=== PATIENT | male | born 1940 | race Hispanic/Latino ===

== ENCOUNTER 2018-04-07 15:53 | Observation (INO) | payer OTHER ==
[~2018-04-07] VITALS: Ht 172.7 cm; Wt 98.5 kg
[2018-04-07] MEDS ORDERED: SODIUM CHLORIDE 0.9% 1000ML 1,000 ML ONE (15:56)
[2018-04-07] MEDS ORDERED: SODIUM CHLORIDE 0.9% 1000ML 2,000 ML IV ONE (16:00)
[2018-04-07 16:04] LABS: BASOPHILS % 0.5 % (0.0-1.0); EOSINOPHILS # (AUTO) 0.4 (0.0-0.4); EOSINOPHILS % 4.1 % (0.0-6.0); HEMATOCRIT 34.4 % (38.2-49.6); HEMOGLOBIN 11.3 g/dL (14.0-18.0); LYMPHOCYTES # (AUTO) 2.2 (1.0-3.2); LYMPHOCYTES % 24.5 % (18.0-39.1); MEAN CORPUSCULAR HEMOGLOBIN 28.3 pg (28-32); MEAN CORPUSCULAR HGB CONC 32.8 g/dL (31-35); MEAN CORPUSCULAR VOLUME 86.2 fL (81-99); MONOCYTES # (AUTO) 0.5 (0.2-0.8); NEUTROPHILS # (AUTO) 5.7 (2.1-6.9); NEUTROPHILS % 64.7 % (38.7-80.0); PLATELET COUNT 224 x10e3/uL (140-360); RED BLOOD COUNT 3.99 x10e6/uL (4.3-5.7); RED CELL DISTRIBUTION WIDTH 13.6 % (11.7-14.4)
[2018-04-07 16:21] LABS: ALBUMIN 3.7 g/dL (3.5-5.0); ALBUMIN/GLOBULIN RATIO 1.1 (0.8-2.0); ANION GAP 16.6 mmol/L (8-16); CALCIUM 9.2 mg/dL (8.4-10.2); CREATININE, SERUM 1.75 mg/dL (0.72-1.25); MAGNESIUM 1.8 MG/DL (1.3-2.1); PHOSPHORUS 3.1 MG/DL (2.3-4.7); POTASSIUM 3.6 mmol/L (3.5-5.1)
[2018-04-07] MEDS ORDERED: ONDANSETRON HCL INJ 2 MG/ML VIAL IV PRN (18:45)
[2018-04-07] MEDS ORDERED: SODIUM CHLORIDE FLUSH 10 ML SYR INJ PRN (18:45)
[2018-04-07] MEDS ORDERED: ASPIRIN 81 MG CHEW TAB PO ONE (18:45)
[2018-04-07 19:09] LABS: CREATINE KINASE MB 10.1 ng/mL (0-5.0)
[2018-04-07] MEDS: SODIUM CHLORIDE 0.9% 1000ML 1,000 ML IV SCH (19:48)
[2018-04-07] MEDS ORDERED: HYDRALAZINE HCL 20 MG/ML VIAL IV PRN (21:15)
[2018-04-07] MEDS ORDERED: DEXTROSE 50% SYRINGE 50 ML IV PRN (21:15)
[2018-04-07] MEDS ORDERED: LISINOPRIL10 MG PO (21:29)
[2018-04-07] MEDS ORDERED: METFORMIN HCL500 MG PO (21:29)
[2018-04-07] MEDS ORDERED: GLIMEPIRIDE2 MG PO (21:29)
[2018-04-07] MEDS ORDERED: METOPROLOL TART50 MG PO (21:29)
--- NOTE | 2018-04-07 21:52 | Diagnostic Imaging Report ---
EXAMINATION: Head CT without contrast. HISTORY:Syncope. COMPARISON:None. TECHNIQUE: Multidetector axial images were obtained from the foramen magnum to the vertex without contrast. The images were reconstructed using brain and bone algorithms. Thin section brain images were reformatted into coronal and sagittal planes. Intravenous contrast: None IMAGE QUALITY: Suboptimal evaluation particularly of skull base and posterior fossa structures due to streak artifacts. FINDINGS: Skull/scalp: No lytic or blastic. lesions. No surgical changes. Parenchyma: Nonspecific bilateral frontoparietal patchy white matter hypodensity are likely related to small vessel ischemic changes. No acute hemorrhage, mass or acute major vascular territorial infarct. Arteries: Atherosclerotic calcification in bilateral carotid siphon. Dural sinuses: No abnormal density suggestive of thrombosis. Ventricles: Mild compensated dilatation due to volume loss. No hydrocephalus. Extra-axial spaces: No abnormal density. Brain volume: Generalized age-related cerebral volume loss. Craniocervical junction: No mass, Chiari malformation, or basilar invagination. Sella: No mass. Paranasal/mastoid sinuses: Imaged portions unremarkable. IMPRESSION: 1. No acute intracranial abnormality. 2. Mild supratentorial white matter microvascular ischemic changes. 3. Generalized age-related cerebral volume loss. Signed by: Dr. Suzanna Levin M.D. on 04/07/2018 9:48 PM
--- NOTE | 2018-04-07 22:06 | Diagnostic Imaging Report ---
EXAM: CHEST SINGLE (PORTABLE), AP 1 view INDICATION: Syncope, shortness of breath COMPARISON: None FINDINGS: LINES/TUBES: None LUNGS: No consolidations or edema. PLEURA: No effusions or pneumothorax. HEART AND MEDIASTINUM: Normal size and contour. BONES AND SOFT TISSUES: No acute findings. IMPRESSION: No acute thoracic abnormality. Signed by: Dr. Jazlyn Rehman M.D. on 04/07/2018 10:02 PM
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
[2018-04-08] VITALS (9 sets, daily range): BP systolic 148–178; BP diastolic 69–81
[2018-04-08] MEDS: SODIUM CHLORIDE 0.9% 1000ML 1,000 ML IV SCH ×3 (00:20→22:49)
[2018-04-08 00:44] LABS: CREATINE KINASE MB 8.3 ng/mL (0-5.0)
[2018-04-08 04:49] LABS: BASOPHILS % 0.4 % (0.0-1.0); EOSINOPHILS # (AUTO) 0.4 (0.0-0.4); EOSINOPHILS % 5.3 % (0.0-6.0); LYMPHOCYTES # (AUTO) 2.4 (1.0-3.2); LYMPHOCYTES % 31.4 % (18.0-39.1); MEAN CORPUSCULAR HEMOGLOBIN 28.1 pg (28-32); MEAN CORPUSCULAR HGB CONC 32.4 g/dL (31-35); MONOCYTES # (AUTO) 0.6 (0.2-0.8); MONOCYTES % 7.4 % (4.4-11.3); NEUTROPHILS # (AUTO) 4.2 (2.1-6.9); NEUTROPHILS % 55.1 % (38.7-80.0); PLATELET COUNT 187 x10e3/uL (140-360); RED BLOOD COUNT 3.91 x10e6/uL (4.3-5.7); RED CELL DISTRIBUTION WIDTH 13.7 % (11.7-14.4)
[2018-04-08 05:17] LABS: ANION GAP 12.6 mmol/L (8-16); CALCIUM 9.1 mg/dL (8.4-10.2); CREATININE, SERUM 1.29 mg/dL (0.72-1.25); MAGNESIUM 1.8 MG/DL (1.3-2.1); POTASSIUM 3.6 mmol/L (3.5-5.1)
[2018-04-08 06:13] LABS: CHOL/HDL RATIO 3.8 (3.9-4.7)
[2018-04-08 06:35] LABS: THYROID STIMULATING HORMONE 1.305 uIU/mL (0.350-4.940)
[2018-04-08 06:44] LABS: CREATINE KINASE MB 7.2 ng/mL (0-5.0)
--- NOTE | 2018-04-08 06:51 | Diagnostic Imaging Report ---
EXAM: CHEST SINGLE (PORTABLE), AP 1 view INDICATION: Syncope COMPARISON: April 07, 2018 FINDINGS: LINES/TUBES: None LUNGS: No consolidations or edema. PLEURA: No effusions or pneumothorax. HEART AND MEDIASTINUM: Normal size and contour. BONES AND SOFT TISSUES: No acute findings. IMPRESSION: No acute thoracic abnormality. Signed by: Dr. Jazlyn Rehman M.D. on 04/08/2018 6:48 AM
[2018-04-08] MEDS: INSULIN REGULAR, HUMAN 100 UNIT/1 ML 3ML VIAL SQ SCH ×4 (07:30→21:00)
[2018-04-08] MEDS ORDERED: LIDOCAINE 1% W/EPINEPHRINE 20 ML VIAL ONE (08:58)
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
--- NOTE | 2018-04-08 11:39 | Operative Report ---
DATE OF PROCEDURE: April 08, 2018 PROCEDURE PERFORMED: Implantable loop recorder. INDICATIONS: Recurrent syncope. DESCRIPTION OF PROCEDURE: After informed consent, the patient was brought to the cardiac catheterization room and placed on a stretcher. His left chest was painted and draped in a sterile fashion. Lidocaine was injected in the left chest for local anesthesia. An incision was made with the enclosed blade. The subcutaneous tract was performed using the enclosed trocar. The implantable loop recorder was deployed into the subcutaneous tissue with the plunger. The wound was apposed using Dermabond solution, and was dressed in a sterile fashion. Patient tolerated procedure without any complications. Job#: [id number] YOSELYN
--- NOTE | 2018-04-08 15:08 | Diagnostic Imaging Report ---
History: Passed out Comparison studies: CT head 04/07/2018 Technique: Sagittal T2; axial DWI, FLAIR, MPGR, T1, Coronal FLAIR. Intravenous contrast: None Findings: Scalp: Normal in signal . No masses . Bone marrow: Normal in signal intensity. Extra-axial: No masses, no fluid collections. Brain sulci: Mildly prominent. Ventricles: Mildly prominent . No hydrocephalus . Parenchyma: Scattered T2/flair hyperintensities of the periventricular and deep white matter. T2/flair hyperintensity at the level of the tessie with associated partial restricted diffusion in the expected location of the corticospinal tracts. No masses, hemorrhage, acute or chronic vascular insults. Suprasellar region: No abnormalities. Craniocervical junction: No abnormalities. Patent foramen magnum. No Chiari one malformation. Vessels: Normal flow-voids in the arteries and sinuses. IMPRESSION: 1. Moderate chronic microvascular ischemic changes of the white matter and diffuse volume loss. 2. Symmetric pontine T2/flair hyperintensities of the bilateral corticospinal tracts with partial restricted diffusion, this could be seen in microvascular ischemic changes or osmotic demyelination, clinical correlation recommended. Signed by: DR Neville Holman M.D. on 04/08/2018 3:05 PM
[2018-04-08] MEDS ORDERED: TYLENOL WITH C1 EACH PO (15:32)
[2018-04-08] MEDS: ACETAMINOPHEN/CODEINE 300MG - 30MG TAB PO PRN ×2 (15:59→22:37)
[2018-04-08] MEDS: MINOCYCLINE HCL 50 MG CAP PO SCH (17:42)
[2018-04-08] MEDS: HYDRALAZINE HCL 25 MG TAB PO PRN (21:03)
[2018-04-09] VITALS (8 sets, daily range): BP systolic 96–195; BP diastolic 52–81
[2018-04-09] MEDS ORDERED: OMEPRAZOLE40 MG PO (00:57)
[2018-04-09] MEDS ORDERED: CLONIDINE HCL0.2 MG PO (01:07)
[2018-04-09] MEDS ORDERED: MAGNESIUM OXID400 MG PO (01:07)
[2018-04-09] MEDS ORDERED: GLIPIZIDE5 MG PO (01:07)
[2018-04-09] MEDS ORDERED: ULTRAM50 MG PO (01:07)
[2018-04-09] MEDS ORDERED: TIZANIDINE HCL4 MG PO (01:07)
[2018-04-09] MEDS ORDERED: FUROSEMIDE40 MG PO (01:07)
[2018-04-09] MEDS ORDERED: TERAZOSIN HCL5 MG PO (01:07)
[2018-04-09] MEDS ORDERED: GABAPENTIN300 MG PO (01:07)
[2018-04-09] MEDS ORDERED: ATORVASTATIN CA10 MG PO (01:07)
[2018-04-09] MEDS ORDERED: AMLODIPINE BESYL5 MG PO (01:09)
[2018-04-09] MEDS ORDERED: NIFEDIPINE CR 30 MG TAB PO ONE (01:45)
[2018-04-09] MEDS: HYDRALAZINE HCL 25 MG TAB PO PRN (05:26)
[2018-04-09] MEDS: INSULIN REGULAR, HUMAN 100 UNIT/1 ML 3ML VIAL SQ SCH ×4 (07:30→20:57)
[2018-04-09] MEDS ORDERED: NIFEDIPINE CR 30 MG TAB PO SCH (09:00)
[2018-04-09] MEDS ORDERED: CLONIDINE HCL 0.2 MG TAB PO SCH ×2 (09:00→17:00)
[2018-04-09] MEDS ORDERED: ATORVASTATIN 10 MG TAB PO SCH (09:00)
[2018-04-09] MEDS ORDERED: TERAZOSIN HCL 5 MG CAP PO SCH (09:00)
[2018-04-09] MEDS ORDERED: AMLODIPINE BESYLATE 5 MG TAB PO SCH (09:00)
[2018-04-09] MEDS: FUROSEMIDE 40 MG TAB PO SCH (09:11)
[2018-04-09] MEDS: METOPROLOL TARTRATE 25 MG TAB PO SCH (09:11)
[2018-04-09] MEDS: GABAPENTIN 300 MG CAP PO SCH ×3 (09:11→20:57)
[2018-04-09] MEDS: PANTOPRAZOLE SOD 40 MG TABEC PO SCH (09:11)
[2018-04-09] MEDS: MINOCYCLINE HCL 50 MG CAP PO SCH ×2 (09:11→17:13)
[2018-04-09] MEDS: SODIUM CHLORIDE 0.9% 1000ML 1,000 ML IV SCH ×2 (10:43→20:57)
[2018-04-09] MEDS ORDERED: ACETAMINOPHEN 325 MG TAB PO PRN (10:45)
--- NOTE | 2018-04-09 14:20 | Consultation ---
DATE OF CONSULTATION: April 09, 2018 NEUROLOGY CONSULT NOTE HISTORY OF PRESENT ILLNESS: Mr. Garcia is 77-year-old ussoj-lsex-plivhpsy man with past medical history significant for hypertension, hyperlipidemia, diabetes mellitus type 2, and two prior asymptomatic strokes without residual deficits admitted to [facility] on April 07, 2018 with syncope. As part of the syncopal evaluation, the patient underwent a MRI of the brain without contrast which revealed moderate chronic small vessel ischemic disease with pontine involvement. The neurology service was consulted due to the abnormal findings on the MRI of the brain. Mr. Garcia endorses blurred vision shortly before fainting on the day of admission. Otherwise, he does not report a visual field cut or other disturbance. He does not report dysarthria, aphasia, facial droop, hemiparesis, or hemihypesthesia. Mr. Garcia does not endorse poor balance. He does report gait impairment which he attributes to chronic, right-sided sciatica. The patient reports dizziness which is further described as a lightheaded sensation upon standing. This sensation often resolves within seconds. Mr. Garcia does not report confusion or headaches. Mr. Garcia experienced a slip and fall without injury approximately 1 month ago. Otherwise, he reports no prior history of head trauma. He does not report prior history of central nervous system infection. As stated above, patient experienced two asymptomatic strokes some time in the past. There are no deficits from either of these strokes. REVIEW OF SYSTEMS: Blurred vision, impairment of balance or gait, syncope, dizziness which is further described as lightheadedness with standing (chronic). PAST MEDICAL HISTORY: Hypertension, hyperlipidemia, diabetes mellitus type 2, prior strokes without residual deficits, multiple syncopal events. PAST SURGICAL HISTORY: Bilateral carpal tunnel release, bilateral inguinal hernia repair, multiple eye surgeries, cervical spine surgery. PAST HOSPITALIZATIONS: Surgeries/procedures as listed, kidney dysfunction as a teen. FAMILY HISTORY: The patient's paternal and maternal grandparents are . Their medical histories are unknown. The patient's father is from a stroke. His mother is from a stroke or myocardial infarction. Mr. Garcia has 13 siblings, all of whom are living. Two sisters and a brother have dementia. All of the siblings have either hypertension or diabetes mellitus or both. Mr. Garcia had 4 children. One daughter is . She was paralyzed as a result of an accident. While unattended, she fell forward and suffocated. A son is from complications of diabetes mellitus. A 2nd son is alive and has hypertension and diabetes mellitus. A 2nd daughter is alive and has diabetes mellitus and bipolar disorder. SOCIAL HISTORY: The patient is . He works at [employer]. He reports a remote history of tobacco use, but quit smoking cigarettes approximately 40 years ago. He does not report current or prior alcohol or recreational drug use. HOME MEDICATIONS: Tylenol No. 3 300 mg by mouth every 6 hours as needed for pain, Norvasc 5 mg by mouth daily, atorvastatin 10 mg by mouth daily, clonidine 0.2 mg by mouth twice daily, furosemide 20 mg by mouth daily, gabapentin 300 mg by mouth three times daily, glimepiride 2 mg by mouth daily, glipizide 10 mg by mouth twice daily, lisinopril 10 mg by mouth daily, magnesium oxide 400 mg by mouth daily, metformin 500 mg by mouth twice daily, metoprolol tartrate 50 mg by mouth twice daily, omeprazole 40 mg by mouth daily, terazosin 5 mg by mouth daily, tizanidine 4 mg by mouth twice daily, tramadol 50 mg by mouth every 8 hours as needed for pain. ALLERGIES: NO KNOWN DRUG ALLERGIES. NO KNOWN FOOD ALLERGIES. NO KNOWN ALLERGIES TO LATEX. NO KNOWN ALLERGIES TO IODINE OR OTHER CONTRAST MATERIALS. PHYSICAL EXAMINATION: VITAL SIGNS: Height 68 inches, weight 217 pounds, BMI 33.0 kg per meter squared. Blood pressure 164/76 mmHg. Pulse 88 beats per minute. Respiratory rate 18 breaths per minute. Oxygen saturation 95% on room air. GENERAL: The patient is awake and alert. Does not appear distressed. Obese. HEENT: Normocephalic and atraumatic. Pupils are surgical. Moist mucous membranes. NECK: Supple. No appreciable thyromegaly. No appreciable carotid bruits. CARDIOVASCULAR: S1 and S2. Regular rate and rhythm. No murmurs, rubs or gallops. RESPIRATORY: Clear to auscultation bilaterally. No wheezes, rhonchi or rales. EXTREMITIES: The skin is warm and dry. No clubbing, cyanosis or edema. The posterior tibial and dorsalis pedis pulses are 1+ and symmetric. SKIN: No rashes or lesions. NEUROLOGIC: Memory/attention: The patient is awake and alert. Oriented to person, place, time, and situation. CRANIAL NERVES: Cranial nerve I: Not tested. Cranial nerves II, III, IV, : Pupils are surgical. Extraocular movements intact. No nystagmus. Cranial nerve V: Sensation to light touch and pinprick is intact in the bilateral V1 through V3 distributions. Strength of the temporalis and masseter muscles is within normal limits. Cranial nerve VII: The face is symmetric, as are all facial movements. Strength is within normal limits. Cranial nerve VIII: Hearing is diminished to finger rub bilaterally. Cranial nerve IX and X: The soft palate elevates equally and symmetrically. Cranial nerve XI: Normal strength of the bilateral sternocleidomastoid and trapezius muscles. Cranial nerve XII: The tongue protrudes midline and moves symmetrically from side to side. STRENGTH: Bulk is normal, and strength is 5/5 in the bilateral deltoids, biceps, triceps, wrist flexors and extensors, finger flexors and extensors, intrinsic hand muscles, hip flexors, knee flexors and extensors, ankle dorsiflexion and plantar flexion, and intrinsic foot muscles. Tone is normal. DTRs: Deep tendon reflexes are 1+ and symmetric at the triceps, biceps and brachioradialis. Deep tendon reflexes are absent and symmetric at the patellas, and Achilles. Plantar responses are flexor bilaterally. SENSATION: Intact to light touch and pinprick in both arms and both legs. CEREBELLAR: Odfbvn-zomv-swipzo and heel-walton movements are intact without dysmetria or other impairment. GAIT: Deferred. SPEECH: Spontaneous speech is normal without appreciable dysarthria or aphasia. Repetition is intact. INVOLUNTARY MOVEMENTS: None. PRONATOR DRIFT: None. LABORATORY DATA: On April 08, 2018, sodium 145, potassium 3.6, chloride 112, carbon dioxide 24, anion gap 12.6. BUN 24, creatinine 1.29. Estimated GFR 54. BUN to creatinine ratio 19. Glucose 49. Calcium 9.1. Phosphorus 3.0, magnesium 1.8. From April 07, 2018 total bilirubin 0.6, AST 20, ALT 15, alkaline phosphatase 121. Total protein 7.0, albumin 3.7, globulin 3.3, albumin to globulin ratio 1.1. Creatinine kinase 259, 207, 181. CK-MB, 10.I 0, 8.30, and 7.20. Troponin I 0.010. Total cholesterol 134. Triglycerides 87, LDL cholesterol 82, HDL cholesterol 35, vitamin B12 407, TSH 1.305. CBC with differential and platelets reveals a white blood cell count 7.57 with a normal differential. The hemoglobin and hematocrit are 11.0 and 34.0, respectively. The platelet count is 187. DIAGNOSTIC STUDIES: On electrocardiogram 04/07/2018: Sinus bradycardia at 57 beats per minute with 1st-degree AV block. A CT of the brain without contrast of 04/07/2018: On my review, there is no evidence of recent large territorial ischemia, hemorrhage, mass, or mass effect. There is mild diffuse cerebral atrophy, appropriate for age. There are changes compatible with mild to moderate chronic small vessel ischemic disease. Chest x-ray 04/07/2018: No acute thoracic abnormality. Chest x-ray 04/08/2018: No acute thoracic abnormality. Echocardiogram 04/08/2018: Ejection fraction 60% to 65%. Concentric left ventricular hypertrophy. Mild aortic insufficiency. Bilateral carotid artery ultrasound with Doppler 04/08/2018: There is atherosclerosis without hemodynamically significant stenosis at the right carotid bulb, bifurcation, internal carotid artery and external carotid artery. There is atherosclerosis with possible hemodynamically significant stenosis at the left carotid bulb, bifurcation, and internal carotid artery. MRI of the brain without contrast 04/08/2018: On my review, there is no evidence of recent large territorial ischemia, hemorrhage, mass, or mass effect. There is diffuse cerebral atrophy appropriate for age. There are scattered nonspecific T2/flair hyperintense foci supratentorially and infratentorially compatible with moderate chronic small vessel ischemic disease. ASSESSMENT AND PLAN: Mr. Garcia is a 77-year-old [id number] man with past medical history significant for hypertension, hyperlipidemia, diabetes mellitus type 2, and two prior strokes without deficits, admitted to [facility] on April 07, 2018 with syncope. At present, the patient's neurological examination is nonfocal. His laboratory data and diagnostic studies have been reviewed and are documented above. The finding on the MRI of the brain of moderate chronic small vessel ischemic disease is not unexpected given the patient's age and medical comorbidities. Chronic small vessel ischemic disease can be caused by aging, hypertension, hyperlipidemia, and diabetes mellitus. At present, Ms. Garcia's hyperlipidemia and diabetes mellitus type 2 are well controlled. However, his blood pressures have been markedly elevated during this hospitalization. His blood pressures need to be brought under better control. Otherwise, he will continue to accumulate the changes seen on the MRI of the brain without contrast. Mr. Garcia was strongly advised to follow up consistently with the treating physicians for monitoring and additions/adjustments to his medication, or medications. There are ano other recommendations from the neurology service at this time. Thank you for this consultation. Time spent: 70 minutes. Job#: [id number] FLORENCIO BETTENCOURT
[2018-04-09] MEDS ORDERED: SODIUM CHLORIDE 0.9% 100 ML 100 ML ONE (19:08)
[2018-04-09] MEDS: ATORVASTATIN 10 MG TAB PO SCH (20:57)
[2018-04-10] VITALS (8 sets, daily range): BP systolic 116–160; BP diastolic 58–71
[2018-04-10 06:11] LABS: BASOPHILS % 0.4 % (0.0-1.0); EOSINOPHILS # (AUTO) 0.4 (0.0-0.4); EOSINOPHILS % 4.5 % (0.0-6.0); HEMATOCRIT 35.5 % (38.2-49.6); HEMOGLOBIN 11.6 g/dL (14.0-18.0); LYMPHOCYTES # (AUTO) 1.8 (1.0-3.2); LYMPHOCYTES % 22.9 % (18.0-39.1); MEAN CORPUSCULAR HEMOGLOBIN 28.2 pg (28-32); MEAN CORPUSCULAR HGB CONC 32.7 g/dL (31-35); MEAN CORPUSCULAR VOLUME 86.2 fL (81-99); MONOCYTES # (AUTO) 0.5 (0.2-0.8); MONOCYTES % 6.8 % (4.4-11.3); NEUTROPHILS # (AUTO) 5.2 (2.1-6.9); PLATELET COUNT 180 x10e3/uL (140-360); RED BLOOD COUNT 4.12 x10e6/uL (4.3-5.7); RED CELL DISTRIBUTION WIDTH 13.8 % (11.7-14.4)
[2018-04-10 06:33] LABS: ANION GAP 12.9 mmol/L (8-16); CALCIUM 9.5 mg/dL (8.4-10.2); CREATININE, SERUM 1.36 mg/dL (0.72-1.25); POTASSIUM 3.9 mmol/L (3.5-5.1)
[2018-04-10] MEDS: INSULIN REGULAR, HUMAN 100 UNIT/1 ML 3ML VIAL SQ SCH ×4 (07:30→20:57)
[2018-04-10] MEDS: AMLODIPINE BESYLATE 5 MG TAB PO SCH (08:38)
[2018-04-10] MEDS: FUROSEMIDE 40 MG TAB PO SCH (08:38)
[2018-04-10] MEDS: GABAPENTIN 300 MG CAP PO SCH ×3 (08:38→20:55)
[2018-04-10] MEDS: MINOCYCLINE HCL 50 MG CAP PO SCH ×2 (08:38→16:12)
[2018-04-10] MEDS: METOPROLOL TARTRATE 25 MG TAB PO SCH (08:38)
[2018-04-10] MEDS: PANTOPRAZOLE SOD 40 MG TABEC PO SCH (08:38)
[2018-04-10] MEDS: SODIUM CHLORIDE 0.9% 1000ML 1,000 ML IV SCH (14:58)
[2018-04-10] MEDS ORDERED: GADOBENATE DIMEGLUMINE 1 ML IV ONE ×2 (18:26→18:31)
[2018-04-10] MEDS ORDERED: SODIUM CHLORIDE 0.9% 50ML 50 ML ONE (18:26)
[2018-04-10] MEDS ORDERED: IOPAMIDOL 370 MG/ML 200 ML INFUS..BTL INJ ONE (18:52)
[2018-04-10] MEDS ORDERED: SODIUM CHLORIDE 0.9% 100 ML 100 ML ONE (18:53)
--- NOTE | 2018-04-10 20:35 | Diagnostic Imaging Report ---
Exam: Cervical MRI without with IV contrast History: Dizziness, syncope Comparison studies: Limited neck CTA of 04/10/2018. Technique: Precontrast axial 2-D [id number] and postcontrast dynamic coronal with 3-D MIP reformats. Contrast: 20 cc MultiHance. Findings: Patient body habitus limits evaluation. Motion artifact also further limits this exam. Common carotid arteries: The origins cannot adequately be evaluated due to artifacts. Otherwise, patent bilaterally. The left ICA is mildly tortuous. Carotid bulbs: Luminal irregularity due to atherosclerosis bilaterally. Less than 20% stenosis at the right carotid bulb. High-grade stenosis (likely greater than 70% stenosis) at the left cervical carotid bulb/left ICA origin. Internal carotid arteries: Patent bilaterally. IMPRESSION: Moderately limited exam due to patient body habitus and motion artifact. 1. Patent carotid and vertebral arteries. 2. High-grade stenosis (likely greater than 70%) at the left cervical carotid bulb/ICA origin. 3. Less than 20% stenosis at the right carotid bulb. Signed by: Dr. Toi Lala M.D. on 04/10/2018 8:31 PM
[2018-04-10] MEDS: ATORVASTATIN 10 MG TAB PO SCH (20:55)
--- NOTE | 2018-04-10 21:03 | Diagnostic Imaging Report ---
History: Dizziness, syncope Comparison studies:None Technique: Axial images were obtained from the thoracic inlet. Coronal and sagittal images reconstructed from the axial data. Intravenous contrast: 100 cc of Omnipaque 300. If present, stenosis is calculated utilizing the NASCET method which calculates the degree of stenosis with reference to the normal lumen of the carotid artery distal to the stenosis. Findings: Exam is limited due to suboptimal IV contrast bolus timing. Findings limitation: Aortic arch antegrade vessels: Moderate scattered calcified plaque in the arch. Nonstenotic calcified plaque at the left subclavian artery origin with at least mild stenosis in the proximal left subclavian ICA due to soft plaque. Nonstenotic calcified plaque at the right brachiocephalic trunk origin. Mild scattered calcified plaque in the proximal right subclavian without gross significant stenosis. Right carotid artery: Cannot adequately evaluate the origin due to streak artifact from venous contamination in the right subclavian vein, otherwise patent. Calcified and soft plaque extend from the bifurcation into the right carotid bulb with less than 20% stenosis at the right carotid bulb. No tandem stenosis distally within the cervical ICA. There may be mild stenosis at the right ECA origin. Left carotid artery: Mildly tortuous proximal left common carotid artery with moderate soft plaque in the middle and distal segments which result in approximately 30% stenosis. Hard and soft plaque at the bifurcation extends into the left carotid bulb/left ICA origin where there is high-grade stenosis (greater than 70%). No tandem stenosis distally within the cervical right ICA. There is approximately 50% stenosis at the left ECA origin. Vertebral arteries: Patent bilaterally. Atherosclerosis at the origins bilaterally (cannot further evaluate due to suboptimal vascular enhancement and attenuation artifact). Included intracranial circulation: Cannot adequately evaluate due to suboptimal IV contrast bolus timing. In spite of this limitation there is scattered calcified atherosclerosis in the cavernous and paraophthalmic segments of the ICAs and mild calcified atherosclerosis without gross significant stenosis in the V4 segment of the left intradural vertebral artery. The bilateral M1 and proximal M2 MCA, A1 and proximal A2 CHEL, basilar artery and proximal posterior cerebral arteries are patent. Cervical spine: There is minimal anterolisthesis of C4 on C5. 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 Multilevel cervical and thoracic disc degeneration with moderately degenerated disc at C5-C6 and at C7-T1 disc osteophyte complexes from C3 to C6 indent the thecal sac and result in at least mild canal stenosis. Multilevel facet arthrosis and uncovertebral arthrosis result in multilevel foraminal stenosis (moderate bilaterally at C3-C4, moderate right at C4-C5, mild on the right at C5-C6, moderate right and mild left at C6-C7 and mild bilaterally at C7-T1). There appear to be laminotomy changes at C3-C4 and at C5-C6. Findings: Multiple dental caries with periapical lucency at the left first mandibular molar. IMPRESSION: Limited exam. 1. Moderate atherosclerosis without adverse chronic plaques as described. 2. Patent carotid and vertebral arteries. 3. High-grade stenosis (greater than 70%) at the left cervical carotid bulb/ICA origin. 4. Less than 20% stenosis at the right cervical carotid bulb. Signed by: Dr. Toi Lala M.D. on 04/10/2018 8:59 PM
[2018-04-11] VITALS: BP 168/77
[2018-04-11] MEDS: SODIUM CHLORIDE 0.9% 1000ML 1,000 ML IV SCH (02:01)
[2018-04-11 04:00] VITALS: BP 160/73
[2018-04-11] MEDS: INSULIN REGULAR, HUMAN 100 UNIT/1 ML 3ML VIAL SQ SCH (07:30)
[2018-04-11 08:03] VITALS: BP 173/83
[2018-04-11] MEDS: FUROSEMIDE 40 MG TAB PO SCH (09:00)
[2018-04-11] MEDS: MINOCYCLINE HCL 50 MG CAP PO SCH (09:00)
[2018-04-11] MEDS: GABAPENTIN 300 MG CAP PO SCH (09:01)
[2018-04-11] MEDS: AMLODIPINE BESYLATE 5 MG TAB PO SCH (09:01)
[2018-04-11] MEDS: PANTOPRAZOLE SOD 40 MG TABEC PO SCH (09:01)
[2018-04-11] MEDS: METOPROLOL TARTRATE 25 MG TAB PO SCH (09:03)
[2018-04-11] MEDS ORDERED: METOPROLOL TART50 MG PO (10:03)
[2018-04-11 11:06] VITALS: BP 173/83
--- NOTE | 2018-04-11 14:22 | Discharge Summary ---
FINAL DISCHARGE DIAGNOSES 1. Syncopal episode, status post loop recorder. 2. Left internal carotid stenosis requiring outpatient followup with vascular surgery, in which an appointment is being made currently with Dr. Jordan as well as Dr. Bermeo, cardiology. 3. Hypotension - resolved, adjustment of medications. 4. Type 2 diabetes. 5. History of supraventricular tachycardia. CONSULTANTS 1. Neurology. 2. Cardiology. VITAL SIGNS: Temperature is 96.3, pulse 79, blood pressure 160/73, pulse ox 97% on room air. LABORATORY DATA: Lab findings show a white count of 7.9, hemoglobin 11.6, hematocrit is 35, platelets of 180. Chemistries, sodium is 141, potassium 3.9, chloride is 107, bicarbonate is 25. His BUN 19, creatinine was 1.36. Hemoglobin A1c is 6.3. Calcium is 9.5, phosphorus was 3, magnesium is 1.8, total bilirubin is 0.6, AST is 20, and ALT 15. Troponins were negative. Albumin was 3.7. TSH was 1.3, vitamin B12 of 407, LDL was 82. MICROBIOLOGY: None. IMAGING STUDIES: CT brain showed no acute findings. Carotid ultrasound showed a left internal carotid greater than 70, increased velocities concerning for stenosis. Chest x-ray, no acute cardiothoracic abnormality. MRI of the brain showed some moderate chronic microvascular ischemic changes of the white matter and diffuse volume loss. Symmetric pontine T2 FLAIR hyperintensities in the bilateral corticospinal tracts with partial restricted diffusion, which could be seen in microvascular ischemic changes as well as demyelination; clinical correlation is recommended. CTA of the neck showed moderate atherosclerotic carotid plaques as described. Patent carotid and vertebral arteries. High-grade stenosis greater than 70% of the left cervical carotid bulb and less than 20% of the right cervical carotid bulb. An MRA of the neck showed patent carotid vertebral arteries. High-grade stenosis greater than 70% of the left cervical carotid bulb and less than 20% stenosis of the right carotid bulb. HOSPITAL COURSE: A 77-year-old male, morbidly obese, with known type 2 diabetes and hypertension and frequent syncopal episodes who comes into the ED with a syncopal episode that occurred in the parking lot here at [facility]. Patient was brought in and further evaluated. Neurology and cardiology were consulted. In relation to neurology, his CT brain was found to be negative. Carotid ultrasound was consistent with a left carotid bulb stenosis, which required a CTA of the neck as well as MRA of the neck, which was consistent with approximately 70% left internal carotid bulb stenosis. MRI of the brain was found to be negative except for some T2 FLAIR hyperintensities in the bilateral corticospinal tracts with partial restricted diffusion requiring neurology consultation. Per neurology, these were all chronic changes and no need for any further workup at this time. Patient will need to continue with statin and aspirin upon discharge and needs close followup with vascular surgery due to the CTA and MRA neck findings. Cardiology was consulted as well. Patient was on cardiac telemetry with no alarms and troponins were negative. Due to the multiple falls, patient was sent to the labor arbitrator hearing office and the loop recorder was replaced by cardiology. Patient did extremely well, worked with PT/OT while here in the hospital with no other complaints. Patient has been cleared by the consultants for discharge home, but needs to follow up closely with vascular surgery which we had requested a referral to see Dr. Jordan as an outpatient. Patient needs to follow up with Dr. Bermeo in 3 days to get the referral as well as to follow up on his loop recorder, in which the patient verbalized thoroughly. I also spoke with the patient's primary care physician, Dr. Easton Luo's office, and they will do a referral to vascular surgery, Dr. Jordan, in the next 1 week. I also spoke with Dr. Jordan's office and they are in the process of making an appointment for Mr. Garcia to be seen here in the next 5 to 7 days as well. Patient was cleared by the consultants for discharge home. Currently, he is asymptomatic, doing well with no other complaints. Patient was also given information, phone number, and address to Dr. Jordan's vascular surgery office to also follow up through in which he verbalized understanding. On the day of discharge, vital signs stable, labs reviewed and stable. Patient was seen and evaluated and examined thoroughly on the day of discharge, no other complaints. Patient verbalized understanding and agreed with plan of care. Follow up accordingly as an outpatient with his primary care physician in 1 week to get a referral to see Dr. Jordan, vascular surgery, in the next 5 to 7 days and also to follow up with Dr. Bermeo, cardiology, in 3 days for loop recorder as well as follow up for his internal carotid stenosis lesions with referral to Dr. Jordan. Patient verbalized and understood plan of care. MEDICATIONS: See med reconciliation form including 1. Lisinopril 10 mg 1 tab p.o. daily. 2. Aspirin 81 mg daily. 3. Lipitor 10 mg daily. 4. Metoprolol tartrate 12.5 mg 1 tab p.o. b.i.d. 5. Norvasc 10 mg daily. DISPOSITION: To home. CONDITION: Stable. DIET: Heart-healthy and diabetic. FOLLOWUP: Patient is to follow up with PCP with referrals to vascular surgery, Dr. Jordan, as well as Dr. Bermeo in the next 5 to 7 days. Patient verbalized understanding. I spoke with the PCP's office as well as Dr. Jordan's office to make that arrangement here in the next 5 to 7 days, in which they verbalized understanding. In the event of any worsening symptoms, patient advised to come back to the ED for further evaluation. Discharge summary took greater than 35 minutes. Job#: [id number] SATISH
== END 2018-04-11 12:28 | disposition home or self-care (01) ==
LOC: ER 15:53 → ERHOLD 19:09 → MED/SURG 23:11 → ERHOLD 23:12 → MED/SURG 23:48
PROVIDERS: ADMIT Internal Medicine; ATTEND Internal Medicine
DX: R55 Syncope and collapse (principal); E86.0 Dehydration; I65.22 Occlusion and stenosis of left carotid artery; N17.9 Acute kidney failure, unspecified; E11.9 Type 2 diabetes mellitus without complications; I10 Essential (primary) hypertension; I47.1 Supraventricular tachycardia; R00.1 Bradycardia, unspecified; E78.5 Hyperlipidemia, unspecified; N28.9 Disorder of kidney and ureter, unspecified; Z86.73 Personal history of transient ischemic attack (TIA), and cerebral infarction without residual deficits; E66.01 Morbid (severe) obesity due to excess calories; Z68.32 Body mass index [BMI] 32.0-32.9, adult
CPT/HCPCS: 33282; 36415 ×5; 70450; 70498; 70549; 70551; 71045 ×2; 80048 ×2; 80053; 80061; 82550 ×2; 82553 ×2; 82607; 82948 ×4; 83036; 83735 ×2; 84100 ×2; 84443; 84484 ×2; 85025 ×3; 93005 ×2; 93306; 93880; 97116 ×3; 97161; 97530 ×2; 99284; C1764; G0378 ×5; G8978; G8979; G8980; J7030 ×5; Q9967; S0164 ×3

== ENCOUNTER 2018-04-21 08:18 | Inpatient (IN) | payer OTHER ==
--- NOTE | 2018-04-19 16:09 | Diagnostic Imaging Report ---
PROCEDURE: Frontal and lateral views of the chest. COMPARISON: Patients [facility], DX, CHEST SINGLE (PORTABLE), 04/08/2018, 6:00. INDICATIONS: PREOP FOR NECK SURGERY FINDINGS: Lines/tubes: None. Lungs: The lungs are well inflated. Linear subsegmental atelectasis in the lingula. Lungs are otherwise clear. There is no evidence of pneumonia or pulmonary edema. Pleura: There is no pleural effusion or pneumothorax. Heart and mediastinum: Cardiac silhouette is unremarkable. Pulmonary vasculature is normal. Atherosclerotic calcification of the aortic arch. Bones: No acute bony abnormality. Degenerative changes in the thoracic spine. IMPRESSION: 1. No acute cardiopulmonary abnormalities. Javed Mendoza M.D. Dictated by: Javed Mendoza M.D. on 04/19/2018 at 16:15 Electronically approved by: Javed Mendoza M.D. on 04/19/2018 at 16:15
[2018-04-19 16:15] LABS: BASOPHILS % 0.4 % (0.0-1.0); EOSINOPHILS # (AUTO) 0.5 (0.0-0.4); EOSINOPHILS % 6.3 % (0.0-6.0); HEMATOCRIT 31.2 % (38.2-49.6); LYMPHOCYTES # (AUTO) 2.2 (1.0-3.2); LYMPHOCYTES % 27.1 % (18.0-39.1); MEAN CORPUSCULAR HEMOGLOBIN 28.2 pg (28-32); MEAN CORPUSCULAR HGB CONC 32.1 g/dL (31-35); MEAN CORPUSCULAR VOLUME 87.9 fL (81-99); MONOCYTES # (AUTO) 0.6 (0.2-0.8); MONOCYTES % 7.7 % (4.4-11.3); NEUTROPHILS # (AUTO) 4.7 (2.1-6.9); PLATELET COUNT 173 x10e3/uL (140-360); RED BLOOD COUNT 3.55 x10e6/uL (4.3-5.7); RED CELL DISTRIBUTION WIDTH 13.6 % (11.7-14.4)
[2018-04-19 16:24] LABS: INR 1.02; PROTHROMBIN TIME 12.6 seconds (11.9-14.5)
[2018-04-19 16:25] LABS: PARTIAL THROMBOPLASTIN TIME 32.8 seconds (23.8-35.5)
[2018-04-19 16:31] LABS: ANION GAP 12.4 mmol/L (8-16); CREATININE, SERUM 2.17 mg/dL (0.72-1.25); POTASSIUM 4.4 mmol/L (3.5-5.1)
[2018-04-21] VITALS (21 sets, daily range): BP systolic 114–153; BP diastolic 47–80
[~2018-04-21] VITALS: Ht 172.7 cm; Wt 108.9 kg
[~2018-04-21 08:18] MED LIST: AMLODIPINE BESYL5 MG PO; ATORVASTATIN CA10 MG PO; CLONIDINE HCL0.2 MG PO; FUROSEMIDE40 MG PO; GABAPENTIN300 MG PO; GLIMEPIRIDE2 MG PO; GLIPIZIDE5 MG PO; LISINOPRIL10 MG PO; MAGNESIUM OXID400 MG PO; METFORMIN HCL500 MG PO; METOPROLOL TART50 MG PO; OMEPRAZOLE40 MG PO; TERAZOSIN HCL5 MG PO; TIZANIDINE HCL4 MG PO; TYLENOL WITH C1 EACH PO; ULTRAM50 MG PO
[2018-04-21] MEDS ORDERED: LIDOCAINE HCL 1% 2 ML AMP ONE (09:23)
[2018-04-21] MEDS ORDERED: THROMBIN FOR SOLN 5,000 UNIT VIAL ONE (09:24)
[2018-04-21] MEDS ORDERED: PROTAMINE SULFATE 10 MG/ML 5 ML VIAL ONE (09:24)
[2018-04-21] MEDS ORDERED: HEPARIN SOD (PORCINE) 1000 UNIT/ML 30ML ONE (09:24)
[2018-04-21] MEDS ORDERED: MUPIROCIN 2% OINT 22 GM TUBE ONE (09:24)
[2018-04-21] MEDS ORDERED: GELATIN SPONGE SZ 100 ONE (09:24)
[2018-04-21] MEDS ORDERED: SODIUM CHLORIDE 0.9% 500ML 500 ML ONE (09:24)
[2018-04-21] MEDS ORDERED: HEPARIN SOD/SOD CHLORIDE 1,000 ML ONE (09:41)
[2018-04-21] MEDS ORDERED: CEFAZOLIN SOD 1 GM VIAL ONE (10:20)
[2018-04-21] MEDS ORDERED: FENTANYL CITRATE/PF 100MCG/2 ML INJ ONE ×2 (13:58→16:47)
[2018-04-21 14:03] LABS: BASOPHILS % 0.5 % (0.0-1.0); EOSINOPHILS # (AUTO) 0.5 (0.0-0.4); HEMATOCRIT 29.8 % (38.2-49.6); HEMOGLOBIN 9.7 g/dL (14.0-18.0); LYMPHOCYTES # (AUTO) 2.2 (1.0-3.2); MEAN CORPUSCULAR HEMOGLOBIN 28.3 pg (28-32); MEAN CORPUSCULAR HGB CONC 32.6 g/dL (31-35); MEAN CORPUSCULAR VOLUME 86.9 fL (81-99); MONOCYTES # (AUTO) 0.5 (0.2-0.8); MONOCYTES % 6.5 % (4.4-11.3); NEUTROPHILS # (AUTO) 4.4 (2.1-6.9); NEUTROPHILS % 57.5 % (38.7-80.0); PLATELET COUNT 161 x10e3/uL (140-360); RED BLOOD COUNT 3.43 x10e6/uL (4.3-5.7); RED CELL DISTRIBUTION WIDTH 13.6 % (11.7-14.4)
[2018-04-21 14:17] LABS: ANION GAP 12.3 mmol/L (8-16); POTASSIUM 4.3 mmol/L (3.5-5.1)
[2018-04-21] MEDS ORDERED: DEXTROSE 50% SYRINGE 50 ML IV PRN (15:30)
[2018-04-21] MEDS ORDERED: LABETALOL HCL 5 MG/ML 20ML VIAL IV PRN (15:30)
[2018-04-21] MEDS ORDERED: ONDANSETRON HCL 4 MG ORAL DISINTEGRATING TAB PO PRN (15:30)
[2018-04-21] MEDS ORDERED: HYDROCODONE/APAP 5MG-325MG TAB PO PRN (15:30)
[2018-04-21] MEDS: GABAPENTIN 300 MG CAP PO SCH ×2 (16:00→20:13)
[2018-04-21] MEDS: PANTOPRAZOLE SOD 40 MG TABEC PO SCH (16:00)
[2018-04-21] MEDS: MAGNESIUM OXIDE 400 MG TAB PO SCH (16:00)
[2018-04-21] MEDS: AMLODIPINE BESYLATE 10 MG TAB PO SCH (16:00)
[2018-04-21] MEDS: TERAZOSIN HCL 5 MG CAP PO SCH (16:00)
[2018-04-21] MEDS: FUROSEMIDE 20 MG TAB PO SCH (16:00)
[2018-04-21] MEDS ORDERED: FUROSEMIDE INJ 10 MG/ML 4 ML VIAL IV ONE (16:15)
[2018-04-21] MEDS: GLIPIZIDE 5 MG TAB PO SCH (16:30)
[2018-04-21] MEDS: SODIUM CHLORIDE 0.9% 1000ML 1,000 ML IV SCH (16:45)
[2018-04-21] MEDS ORDERED: MIDAZOLAM HCL 2 MG/2 ML VIAL ONE (16:47)
--- NOTE | 2018-04-21 16:54 | Diagnostic Imaging Report ---
PROCEDURE: A single AP view of the chest. COMPARISON: Patients [facility], , CHEST 2 VIEWS, 04/19/2018, 15:21. INDICATIONS: LOW SAT FINDINGS: Lines/tubes: None. Lungs: The lungs are slightly hypoinflated. No consolidation. No overt pulmonary edema. Pleura: There is no pleural effusion or pneumothorax. Heart and mediastinum: Cardiac silhouette is mildly prominent, likely secondary to portable AP projection. Central pulmonary venous congestion. Bones: No acute bony abnormality. IMPRESSION: 1. central pulmonary venous congestion. No consolidation or pulmonary edema. Javed Mendoza M.D. Dictated by: Javed Mendoza M.D. on 04/21/2018 at 17:00 Electronically approved by: Javed Mendoza M.D. on 04/21/2018 at 17:00
[2018-04-21] MEDS: METOPROLOL TARTRATE 25 MG TAB PO SCH (17:00)
[2018-04-21] MEDS: TIZANIDINE HCL 4 MG TAB PO SCH (17:00)
[2018-04-21] MEDS: LISINOPRIL 10 MG TAB PO SCH (17:00)
--- NOTE | 2018-04-21 17:06 | Consultation ---
DATE OF CONSULTATION: April 21, 2018 PULMONARY/CRITICAL CARE CONSULTATION CHIEF COMPLAINT: History of leg swelling and recent carotid endarterectomy. HISTORY OF PRESENT ILLNESS: The patient is a 78-year-old man. He has a history of renal insufficiency and hypertension. He also has a history of SVT and syncope. On a recent hospitalization for syncope, he was found to have carotid artery stenosis. He was admitted for carotid endarterectomy. He received some fentanyl in the recovery room and had some subsequent desaturations. He required oxygen and his saturations are now improving. He does not complain of chest pain or fevers. He does note bilateral leg swelling. PAST MEDICAL HISTORY: Diabetes, hypertension, supraventricular tachycardia renal insufficiency. PAST SURGICAL HISTORY: Recent carotid endarterectomy. FAMILY HISTORY: History of hypertension and diabetes. ALLERGIES: NO KNOWN DRUG ALLERGIES. SOCIAL HISTORY: The patient is no a smoker or a drinker. He quit smoking in 1964. REVIEW OF SYSTEMS: The patient is afebrile. The patient has no headache. He is not having any neck pain. He has no throat pain. Cardiac, regular rate and rhythm with normal S1 and S2. There are no murmurs. Does not report any chest pain. He does note some dyspnea. He is not having any abdominal pain. He has no nausea or vomiting. He does report some leg swelling. PHYSICAL EXAMINATION: VITAL SIGNS: The patient is afebrile. The blood pressure is 173/83 and the O2 saturation 97%. The pulse is 79. HEENT: Examination shows no facial swelling or erythema. Nasal mucosa is normal. The oropharynx is normal. LYMPHATIC: Examination shows no submandibular, cervical or supraclavicular adenopathy. CARDIAC: Exam reveals regular rate and rhythm with normal S1 and S2. There are no murmurs or rubs. LUNGS: Auscultation of the lungs reveals decreased breath sounds at the bases. No wheezing. ABDOMEN: Soft and nontender. No rebound or guarding. EXTREMITIES: Examination shows 2+ leg edema bilaterally. LABORATORY DATA: The white blood cell count is 7.65, hemoglobin 9.7, platelet count 161. BUN to creatinine ratio is 45 to 2.17. It was previously 1.36. Electrolytes within normal limits. Blood sugar is 150. Chest radiograph shows no acute disease IMPRESSION 1. Decreased oxygen saturation and dyspnea following recent surgery. 2. Bilateral leg edema. 3. [id number] renal insufficiency. 4. Hypertension. 5. Diabetes. PLAN: 1. The patient will have a repeat chest x-ray. 2. Continue to wean oxygen as tolerated. 3. Lasix x1. 4. Monitor kidney function. 5. Consider venous Duplex studies. Job#: [id number] GH MTDD
[2018-04-21] MEDS: INSULIN REGULAR, HUMAN 100 UNIT/1 ML 3ML VIAL SQ SCH (18:00)
[2018-04-21] MEDS ORDERED: ROCURONIUM BROMIDE 10 MG/ML 5ML VIAL ONE (18:06)
[2018-04-21] MEDS ORDERED: PROPOFOL IV EMULSION 10 MG/ML 20 ML VIAL ONE (18:06)
[2018-04-21] MEDS ORDERED: EPHEDRINE SULFATE INJ 50 MG/10 ML SYR ONE (18:06)
[2018-04-21] MEDS ORDERED: DEXAMETHASONE SOD PHOS INJ 4 MG/ML VIAL ONE (18:06)
[2018-04-21] MEDS ORDERED: SEVOFLURANE INHAL SOLN 250 ML PEN BTL ONE (18:06)
[2018-04-21] MEDS ORDERED: NEOSTIGMINE 5 MG/5ML SYR ONE (18:06)
[2018-04-21] MEDS ORDERED: ACETAMINOPHEN 1000 MG/100 ML IV ONE (18:06)
[2018-04-21] MEDS ORDERED: ONDANSETRON HCL INJ 2 MG/ML VIAL ONE (18:06)
[2018-04-21] MEDS ORDERED: LIDOCAINE HCL 2% LOCAL INJ 5 ML SDV VIAL INJ ONE (18:06)
[2018-04-21] MEDS ORDERED: GLYCOPYRROLATE INJ 1MG/ 5 ML SYR ONE (18:06)
[2018-04-21] MEDS ORDERED: CEFAZOLIN SOD 1 GM VIAL IV NR (20:00)
[2018-04-21] MEDS: MORPHINE SULFATE 2 MG/ML SYR IV PRN (20:13)
[2018-04-21] MEDS: ATORVASTATIN 10 MG TAB PO SCH (20:13)
[2018-04-22] VITALS (38 sets, daily range): BP systolic 119–162; BP diastolic 45–72
[2018-04-22] MEDS: SODIUM CHLORIDE 0.9% 1000ML 1,000 ML IV SCH (02:59)
[2018-04-22 05:20] LABS: BASOPHILS % 0.3 % (0.0-1.0); EOSINOPHILS % 0.3 % (0.0-6.0); HEMATOCRIT 32.2 % (38.2-49.6); HEMOGLOBIN 10.6 g/dL (14.0-18.0); LYMPHOCYTES # (AUTO) 1.3 (1.0-3.2); MEAN CORPUSCULAR HEMOGLOBIN 28.5 pg (28-32); MEAN CORPUSCULAR HGB CONC 32.9 g/dL (31-35); MEAN CORPUSCULAR VOLUME 86.6 fL (81-99); MONOCYTES # (AUTO) 0.6 (0.2-0.8); MONOCYTES % 5.7 % (4.4-11.3); NEUTROPHILS # (AUTO) 8.9 (2.1-6.9); NEUTROPHILS % 81.3 % (38.7-80.0); PLATELET COUNT 175 x10e3/uL (140-360); RED BLOOD COUNT 3.72 x10e6/uL (4.3-5.7); RED CELL DISTRIBUTION WIDTH 13.5 % (11.7-14.4)
[2018-04-22 05:43] LABS: ALBUMIN 3.3 g/dL (3.5-5.0); ANION GAP 14.1 mmol/L (8-16); CALCIUM 8.9 mg/dL (8.4-10.2); CREATININE, SERUM 1.49 mg/dL (0.72-1.25); POTASSIUM 4.1 mmol/L (3.5-5.1)
[2018-04-22] MEDS: INSULIN REGULAR, HUMAN 100 UNIT/1 ML 3ML VIAL SQ SCH ×4 (06:00→18:00)
[2018-04-22 07:03] LABS: LYMPHOCYTES % (MANUAL) 9 % (19-48); MONOCYTES % (MANUAL) 2 % (3.4-9.0); NEUTROPHILS % (MANUAL) 88 % (40-74)
[2018-04-22 07:04] LABS: RBC MORPHOLOGY COMMENT NORMAL
[2018-04-22 07:05] LABS: ANISOCYTOSIS SLIGHT; HYPOCHROMASIA SLIGHT; PLATELET ESTIMATE ADEQUATE; PLATELET MORPHOLOGY COMMENT NORMAL
[2018-04-22] MEDS: FUROSEMIDE 20 MG TAB PO SCH (08:57)
[2018-04-22] MEDS: TERAZOSIN HCL 5 MG CAP PO SCH (08:57)
[2018-04-22] MEDS: PANTOPRAZOLE SOD 40 MG TABEC PO SCH (08:57)
[2018-04-22] MEDS: GLIPIZIDE 5 MG TAB PO SCH ×2 (08:57→16:54)
[2018-04-22] MEDS: AMLODIPINE BESYLATE 10 MG TAB PO SCH (08:58)
[2018-04-22] MEDS: GABAPENTIN 300 MG CAP PO SCH ×3 (08:58→21:34)
[2018-04-22] MEDS: MAGNESIUM OXIDE 400 MG TAB PO SCH (08:58)
[2018-04-22] MEDS: METOPROLOL TARTRATE 25 MG TAB PO SCH ×2 (08:58→16:54)
[2018-04-22] MEDS: LISINOPRIL 10 MG TAB PO SCH (08:58)
[2018-04-22] MEDS: TIZANIDINE HCL 4 MG TAB PO SCH ×2 (08:59→16:54)
[2018-04-22] MEDS: MORPHINE SULFATE 2 MG/ML SYR IV PRN (08:59)
--- NOTE | 2018-04-22 09:20 | Consultation ---
DATE OF CONSULTATION: April 22, 2018 CARDIOLOGY CONSULTATION REASON FOR CONSULTATION: Cardiac management. HPI: This is a pleasant 77-year-old male that underwent a left carotid endarterectomy, and he was sent to the ICU for recovery. He was admitted in March when he was found passed out in a parking lot. Had a carotid Doppler that was showing 70% to 79% stenosis on the left carotid. He also underwent a loop recorder implant by Dr. Bermeo. He denied any chest pain, any palpitation, any dizziness, any shortness of breath, or diaphoresis. PAST MEDICAL HISTORY: Carotid stenosis, syncope, diabetes, hypertension, hyperlipidemia, SVT, arthritis, and obesity. PAST SURGICAL HISTORY: Internal loop recorder implant. FAMILY HISTORY: Positive for diabetes and hypertension. SOCIAL HISTORY: No smoking. No drinking. Lives at home with family. MEDICATIONS: See med list. ALLERGIES: HE IS NOT ALLERGIC TO ANY MEDICATION. REVIEW OF SYSTEMS: Negative except those mentioned above. He is status post left CEA. PHYSICAL EXAMINATION VITAL SIGNS: Temperature 98, heart rate 99, blood pressure 132/64, respirations 16, oxygen saturation 95% on 2 L nasal cannula. GENERAL: He is awake, alert and oriented times 3. HEENT: Mucous membrane moist. NECK: Supple. LUNGS: Bilateral clear to auscultation. CARDIOVASCULAR: S1 and S2 present. ABDOMEN: Soft. NEUROLOGICAL: Intact. EXTREMITIES: Bilateral lower with 1+ edema. LABS: Sodium 142, potassium 4.1, chloride 106, CO2 26, BUN 25, creatinine 1.49, glucose 149. White blood cell 10.9, hemoglobin 10.6, hematocrit 32.2, and platelets 175,000. PT 12.6, PTT 32.8 and INR 1.02. IMPRESSION 1. Left carotid stenosis. 2. Diabetes. 3. Hypertension. 4. Obesity. 5. Renal insufficiency. ASSESSMENT AND PLAN: He had an echocardiogram done last month that showed normal systolic function. EF of 60% to 65%. He is status post left CEA and doing good. Will go ahead and continue his home medications, including the diuretics. He can be out of bed with physical therapy. Further cardiac workup pending clinical cause. Thank you for this consultation. DICTATED BY ODILIA ALAMO NP Job#: [id number] [place]
[2018-04-22] MEDS: ACETAMINOPHEN/CODEINE 300MG - 30MG TAB PO PRN ×2 (13:41→19:32)
--- NOTE | 2018-04-22 13:42 | Operative Report ---
DATE OF PROCEDURE: April 21, 2018 PREOPERATIVE DIAGNOSIS: Severe left carotid stenosis. POSTOPERATIVE DIAGNOSIS: Severe left carotid stenosis. DEPOSIT REFUND CLERK: Christopher Coleman CST OPERATION PERFORMED: Left carotid endarterectomy. DESCRIPTION OF OPERATION: After the satisfactory accomplishment of general anesthesia, the patient's left neck was prepped and draped in sterile fashion. A standard left carotid incision was made along the anterior border of the sternomastoid muscle. The incision was carried down through the subcutaneous tissues to expose the left common carotid artery. The vessel was dissected free from the surrounding tissues and looped with a vessel loop. The dissection was carried distally to expose the internal carotid artery and the external carotid artery and its branches. Care was taken to identify and preserve all nerve structures in the region. Systemic heparin was given through a central vein cannula for the purposes of anticoagulation. The common, external and internal carotid arteries were briefly crossclamped. A long incision was made in the common carotid artery and carried distally through the bifurcation and well up into the internal carotid artery. A severely obstructing atherosclerotic plaque was quickly encountered. The plaque was removed using standard endarterectomy techniques. Following this, an indwelling shunt was placed in the common carotid artery proximally and the internal carotid artery distally, thereby reestablishing blood flow to the left side of the brain for the remainder of the case. The surface of the vessel was then smoothed, and all loose debris was carefully removed. Heparinized saline flushes were routinely employed. A previously constructed Dacron patch was brought into the operative field. The patch was used to close the arteriotomy site. Running 7-0 Prolene was used for this patch closure. Prior to completing the closure, the shunt was removed and the vessel was flushed free from all air and debris. Once the sutures were tied, there was an excellent pulse in the patch and in the carotid artery beyond. Protamine was then given to counteract the effects of the heparin. All bleeding points were cauterized, ligated or oversewn. The wounds were thoroughly irrigated with antibiotic solution and closed in layers with interrupted 2-0 Vicryl for the deep tissues and Monocryl subcuticular stitches for the skin. The patient tolerated the procedure well and was returned to the intensive care unit in good condition. Job#: [id number] EV
[2018-04-22] MEDS ORDERED: FUROSEMIDE INJ 10 MG/ML 4 ML VIAL IV ONE (14:00)
[2018-04-22] MEDS: ENOXAPARIN SOD INJ 40 MG/0.4 ML SYR SC SCH (16:54)
[2018-04-22] MEDS: ATORVASTATIN 10 MG TAB PO SCH (21:34)
[2018-04-23 00:27] VITALS: BP 140/63
[2018-04-23 04:00] VITALS: BP 161/72
[2018-04-23] MEDS: INSULIN REGULAR, HUMAN 100 UNIT/1 ML 3ML VIAL SQ SCH ×3 (05:48→12:00)
[2018-04-23 06:13] LABS: BASOPHILS % 0.3 % (0.0-1.0); EOSINOPHILS # (AUTO) 0.3 (0.0-0.4); EOSINOPHILS % 3.6 % (0.0-6.0); HEMATOCRIT 31.8 % (38.2-49.6); HEMOGLOBIN 10.4 g/dL (14.0-18.0); LYMPHOCYTES # (AUTO) 1.5 (1.0-3.2); LYMPHOCYTES % 16.2 % (18.0-39.1); MEAN CORPUSCULAR HEMOGLOBIN 28.4 pg (28-32); MEAN CORPUSCULAR HGB CONC 32.7 g/dL (31-35); MEAN CORPUSCULAR VOLUME 86.9 fL (81-99); MONOCYTES # (AUTO) 0.7 (0.2-0.8); MONOCYTES % 7.2 % (4.4-11.3); NEUTROPHILS # (AUTO) 6.9 (2.1-6.9); NEUTROPHILS % 72.2 % (38.7-80.0); PLATELET COUNT 163 x10e3/uL (140-360); RED BLOOD COUNT 3.66 x10e6/uL (4.3-5.7); RED CELL DISTRIBUTION WIDTH 13.2 % (11.7-14.4)
[2018-04-23 06:33] LABS: ALBUMIN/GLOBULIN RATIO 0.9 (0.8-2.0); ANION GAP 12.8 mmol/L (8-16); CALCIUM 8.9 mg/dL (8.4-10.2); CREATININE, SERUM 1.24 mg/dL (0.72-1.25); POTASSIUM 3.8 mmol/L (3.5-5.1)
[2018-04-23 08:23] VITALS: BP 146/70
[2018-04-23] MEDS ORDERED: ASPIRIN 81 MG ENTERIC COATED PO SCH (09:00)
[2018-04-23] MEDS: TERAZOSIN HCL 5 MG CAP PO SCH (09:03)
[2018-04-23] MEDS: PANTOPRAZOLE SOD 40 MG TABEC PO SCH (09:03)
[2018-04-23] MEDS: GLIPIZIDE 5 MG TAB PO SCH ×2 (09:03→17:32)
[2018-04-23] MEDS: FUROSEMIDE 20 MG TAB PO SCH (09:03)
[2018-04-23] MEDS: AMLODIPINE BESYLATE 10 MG TAB PO SCH (09:04)
[2018-04-23] MEDS: METOPROLOL TARTRATE 25 MG TAB PO SCH ×2 (09:04→17:33)
[2018-04-23] MEDS: GABAPENTIN 300 MG CAP PO SCH ×2 (09:04→15:00)
[2018-04-23] MEDS: MAGNESIUM OXIDE 400 MG TAB PO SCH (09:04)
[2018-04-23] MEDS: LISINOPRIL 10 MG TAB PO SCH (09:04)
[2018-04-23] MEDS: TIZANIDINE HCL 4 MG TAB PO SCH ×2 (09:04→17:33)
[2018-04-23] MEDS: ACETAMINOPHEN/CODEINE 300MG - 30MG TAB PO PRN (09:05)
[2018-04-23 11:02] VITALS: BP 146/70
[2018-04-23 12:40] VITALS: BP 128/62
[2018-04-23 16:57] VITALS: BP 123/61
[2018-04-23] MEDS: ENOXAPARIN SOD INJ 40 MG/0.4 ML SYR SC SCH (17:33)
== END 2018-04-23 18:20 | disposition home or self-care (01) | DRG 38 ==
LOC: OR 08:18 → PACU V 14:16 → ICU 15:44 → MED/SURG 04-22 10:18
PROVIDERS: ADMIT Thoracic Surgery (Cardiothoracic Vascular Surgery); ATTEND Thoracic Surgery (Cardiothoracic Vascular Surgery)
PROC: 03CL0Z6 (ICD-10-PCS; principal; 2018-04-22)
PROC: 03UJ0JZ Supplement Left Common Carotid Artery with Synthetic Substitute, Open Approach (ICD-10-PCS; 2018-04-22)
DX: I65.22 Occlusion and stenosis of left carotid artery (principal); J95.89 Other postprocedural complications and disorders of respiratory system, not elsewhere classified; E11.9 Type 2 diabetes mellitus without complications; I10 Essential (primary) hypertension; E78.5 Hyperlipidemia, unspecified; E66.9 Obesity, unspecified; M19.90 Unspecified osteoarthritis, unspecified site; Z83.3 Family history of diabetes mellitus; Z82.49 Family history of ischemic heart disease and other diseases of the circulatory system; N28.9 Disorder of kidney and ureter, unspecified; R06.09 Other forms of dyspnea; K21.9 Gastro-esophageal reflux disease without esophagitis; Z86.73 Personal history of transient ischemic attack (TIA), and cerebral infarction without residual deficits; Z68.36 Body mass index [BMI] 36.0-36.9, adult
CPT/HCPCS: 36415; 71045; 71046; 80048; 80051; 80053; 82948; 85025; 85610; 85730; 86850; 86900; 86920; 88304; 88311; 93005; 93970; 96374; 96376; C1768; J0690; J1100; J1644; J1650; J1940; J2001; J2250; J2270; J2405; J2720; J7030; J7040